=== PATIENT | female | born 1985 | race Caucasian/White ===

== ENCOUNTER 2020-01-18 08:05 | Outpatient (CLI) | payer MEDICAID ==
[2020-01-18 09:00] LABS: BASOPHILS # (AUTO) 0.02 x10^3/uL (0-0.1); BASOPHILS % (AUTO) 0 % (0-1); EOSINOPHILS # (AUTO) 0.16 x10^3/uL (0-0.4); EOSINOPHILS % (AUTO) 2 % (1-7); LYMPHOCYTES # (AUTO) 1.85 x10^3/uL (1-3.4); LYMPHOCYTES % (AUTO) 20 % (22-44); MD NO; MEAN CORPUSCULAR HEMOGLOBIN 30.9 pg (27.0-34.8); MEAN CORPUSCULAR HGB CONC 33.2 g/dL (32.4-35.8); MEAN CORPUSCULAR VOLUME 93.2 fL (80-100); MEAN PLATELET VOLUME 8.6 fL (7.4-10.4); MONOCYTES # (AUTO) 0.38 x10^3/uL (0.2-0.8); MONOCYTES % (AUTO) 4 % (2-9); NEUTROPHILS # (AUTO) 6.82 x10^3/uL (1.8-6.8); NEUTROPHILS % (AUTO) 74 % (42-75); PLATELET COUNT 251 x10^3/uL (130-400); RED BLOOD COUNT 4.42 x10^6/uL (3.82-5.3); RED CELL DISTRIBUTION WIDTH 12.4 % (9.6-15.2)
[2020-01-18] MEDS ORDERED: LEVO1TAB6 PO (09:21)
[2020-01-18] MEDS ORDERED: CRAN500T2 PO (09:21)
[2020-01-18] MEDS ORDERED: BIOT1CAP3 PO (09:21)
[2020-01-18] MEDS ORDERED: LACT1CAP35 PO (09:21)
== END 2020-01-18 23:59 | disposition home or self-care (01) ==
LOC: STAR 08:05
PROVIDERS: ATTEND Obstetrics & Gynecology
DX: Z01.818 Encounter for other preprocedural examination (principal); N93.9 Abnormal uterine and vaginal bleeding, unspecified
CPT/HCPCS: 36415; 84703; 85025

== ENCOUNTER 2020-01-22 08:24 | Day surgery (SDC) | payer MEDICAID, OTHER ==
[~2020-01-22] VITALS: Ht 177.8 cm; Wt 115.0 kg
[~2020-01-22 08:24] MED LIST: BIOT1CAP3 PO; CRAN500T2 PO; LACT1CAP35 PO; LEVO1TAB6 PO
[2020-01-22] MEDS ORDERED: ATOR10TA9 PO (08:55)
[2020-01-22] MEDS ORDERED: LACTATED RINGERS 1,000 ML IV SCH (08:56)
[2020-01-22] MEDS ORDERED: DIPHENHYDRAMINE 50 MG/ML, 1ML IVPush PRN (09:00)
[2020-01-22] MEDS ORDERED: METOCLOPRAMIDE 5 MG/ML, 2ML IVPush PRN (09:00)
[2020-01-22] MEDS ORDERED: CHLORHEXIDINE 15 ML UDC MM ONE (09:00)
[2020-01-22] MEDS ORDERED: MEPERIDINE/PF 25MG/0.5ML IVPush PRN (09:00)
[2020-01-22] MEDS ORDERED: ALBUTEROL/IPRATROPIUM 2.5MG/0.5MG, 3 ML NPPB PRN (09:00)
[2020-01-22] MEDS ORDERED: DIAZEPAM 5 MG/ML, 2ML IVPush PRN (09:00)
[2020-01-22] MEDS ORDERED: EPHEDRINE 50 MG/ML, 1ML IM PRN (09:00)
[2020-01-22] MEDS ORDERED: KETOROLAC 30 MG/1 ML IVPush PRN (09:00)
[2020-01-22] MEDS ORDERED: ONDANSETRON 2MG/ML, 2ML IVPush PRN (09:00)
[2020-01-22] MEDS ORDERED: HALOPERIDOL 5 MG/ML IV PRN (09:00)
[2020-01-22] MEDS ORDERED: MIDAZOLAM 1 MG/ML, 2ML IV PRN (09:00)
[2020-01-22] MEDS ORDERED: OXYcodone 5 MG/5 ML ORAL.SOL UDC PO PRN (09:00)
[2020-01-22] MEDS ORDERED: LABETALOL 5MG/ML, 20ML IV PRN (09:00)
[2020-01-22] MEDS ORDERED: HYDROmorphone 1 MG/ML, 1ML INJ IVPush PRN (09:00)
[2020-01-22] MEDS ORDERED: hydrALAzine 20 MG/ML, 1ML IV PRN (09:00)
[2020-01-22] MEDS ORDERED: LORazepam 2 MG/ML, 1ML IVPush PRN (09:00)
[2020-01-22] MEDS ORDERED: EPHEDRINE 50 MG/ML, 1ML IVPush PRN (09:00)
[2020-01-22] MEDS ORDERED: HYDROcodone/APAP 7.5-325MG/15ML UDC PO PRN (09:00)
[2020-01-22] MEDS ORDERED: FENTANYL PF 100 MCG/2ML IV PRN (09:00)
[2020-01-22] MEDS ORDERED: ACETAMINOPHEN 325 MG TABLET PO PRN (09:00)
[2020-01-22 09:07] LABS: HCG UR SG 1.021 (1.003-1.030)
[2020-01-22] MEDS ORDERED: ROCURONIUM 10MG/ML,5ML ONE (09:45)
[2020-01-22] MEDS ORDERED: FENTANYL PF 250 MCG/5ML ONE (09:45)
[2020-01-22] MEDS ORDERED: MIDAZOLAM 1 MG/ML, 2ML ONE (09:45)
[2020-01-22] MEDS ORDERED: GLYCOPYRROLATE 0.2MG/1ML, 5ML ONE (09:45)
[2020-01-22] MEDS ORDERED: DEXAMETHASONE 4 MG/ML, 1ML ONE (09:45)
[2020-01-22] MEDS ORDERED: LIDOCAINE-MPF 2% ,5ML ONE (09:45)
[2020-01-22] MEDS ORDERED: PROPOFOL 10 MG/ML, 20ML ONE (09:45)
[2020-01-22] MEDS ORDERED: SILVER NITRATE STICK TP ONE ×2 (10:18→11:00)
[2020-01-22] MEDS ORDERED: BUPIVACAINE/PF 0.25% ONE (10:18)
[2020-01-22] MEDS ORDERED: CEFAZOLIN 1,000 MG ONE (10:33)
[2020-01-22] MEDS ORDERED: BUPIVACAINE/PF 0.25% INFIL ONE (10:49)
[2020-01-22] MEDS ORDERED: ACETAMINOPHEN 650 MG/20.3 ML UDC ONE (11:48)
[2020-01-22] MEDS ORDERED: KETOROLAC 30 MG/1 ML ONE (11:48)
[2020-01-22] MEDS ORDERED: OXYcodone 5 MG/5 ML ORAL.SOL UDC ONE (11:48)
== END 2020-01-22 13:30 | disposition home or self-care (01) ==
LOC: OUT 08:24
PROVIDERS: ATTEND Obstetrics & Gynecology
DX: N93.9 Abnormal uterine and vaginal bleeding, unspecified (principal); Z11.59 Encounter for screening for other viral diseases; N84.0 Polyp of corpus uteri; E78.00 Pure hypercholesterolemia, unspecified; E66.9 Obesity, unspecified; Z79.899 Other long term (current) drug therapy; Z98.890 Other specified postprocedural states
CPT/HCPCS: 58558; 81025; 88305; J0690; J1100; J1885; J2250; J2704; J3010; J3490; J7120; U0001